=== PATIENT | male | born 1950 | race Caucasian/White ===

== ENCOUNTER → 2022-07-15 | Day surgery (SDC) | payer MEDICARE, BC ==
[~2022-07-15] MED LIST: ACETAMINOPHEN-1 EAC4 PO; AMLODIPINE BESY10 MG PO; ARICEPT5 MG PO; ASPIRIN81 MG PO; BASAGLAR SQ; BUPIVACAINE HCL 0.5% INJ 30 ML VIAL INJ ONE; CELEBREX200 MG PO; DEXMEDETOMIDINE HCL 2 ML ONE; EPHEDRINE SULFATE INJ 50 MG/ML VIAL ONE; FARXIGA10 MG PO; FENTANYL CITRATE/PF 100MCG/2 ML INJ ONE; FLOMAX0.4 MG PO; HYDROCHLOROTHIA25 MG PO; LACTATED RINGER'S 1,000 ML ONE; LIDOCAINE HCL 2% LOCAL INJ 5 ML SDV VIAL INJ ONE; LOSARTAN POTAS100 MG PO; METFORMIN HCL500 MG PO; MUPIROCIN 2% OINT 22 GM TUBE ONE; NOVALOG SQ; ONDANSETRON HCL INJ 2MG/ML 2ML 2 MG/ML VIAL ONE; PHENYLEPHRINE HCL 1% 10 MG/ML VIAL ONE; POVIDONE IODINE 0.05% 0.05 % ML PO ONE; PROPOFOL IV EMULSION 10 MG/ML 20 ML VIAL ONE; PROZAC40 MG PO; SEVOFLURANE INHAL SOLN 250 ML PEN BTL ONE; SIMVASTATIN20 MG PO; SODIUM CHLORIDE 0.9% 100 ML ONE
[2022-07-15 07:18] LABS: BASOPHILS % 0.4 % (0.0-1.0); EOSINOPHILS # (AUTO) 0.2 (0.0-0.4); EOSINOPHILS % 2.2 % (0.0-6.0); HEMOGLOBIN 14.6 g/dL (14.0-18.0); LYMPHOCYTES # (AUTO) 1.6 (1.0-3.2); LYMPHOCYTES % 19.4 % (18.0-39.1); MEAN CORPUSCULAR HEMOGLOBIN 31.1 pg (28-32); MEAN CORPUSCULAR VOLUME 91.7 fL (81-99); MONOCYTES # (AUTO) 0.8 (0.2-0.8); MONOCYTES % 9.9 % (4.4-11.3); NEUTROPHILS # (AUTO) 5.6 (2.1-6.9); NEUTROPHILS % 67.5 % (38.7-80.0); PLATELET COUNT 205 x10e3/uL (140-360); RED BLOOD COUNT 4.69 x10e6/uL (4.3-5.7)
[2022-07-15 07:43] LABS: ANION GAP 17.1 mmol/L (8-16); CALCIUM 9.5 mg/dL (8.4-10.2); CREATININE, SERUM 1.11 mg/dL (0.72-1.25); POTASSIUM 4.1 mmol/L (3.5-5.1)
[2022-07-15 11:25] VITALS: BP 138/60
== END | disposition home or self-care (01) ==
LOC: OR 06:15
PROVIDERS: ATTEND Plastic Surgery
DX: G56.21 Lesion of ulnar nerve, right upper limb (principal); G56.01 Carpal tunnel syndrome, right upper limb; M65.841 Other synovitis and tenosynovitis, right hand; E10.9 Type 1 diabetes mellitus without complications; I10 Essential (primary) hypertension; G47.30 Sleep apnea, unspecified; F17.290 Nicotine dependence, other tobacco product, uncomplicated; Z79.82 Long term (current) use of aspirin; Z79.4 Long term (current) use of insulin; Z79.84 Long term (current) use of oral hypoglycemic drugs; Z79.899 Other long term (current) drug therapy
CPT/HCPCS: 36415; 64718; 71046; 80048; 82948; 85025; J0690; J2001; J2370; J2405; J2704; J3010; J7050; J7121